=== PATIENT | male | born 1950 | race Caucasian/White ===

== ENCOUNTER 2020-06-17 16:29 | Inpatient (IN) | payer OTHER, BC ==
[2020-06-17 17:48] LABS: BASO % 0.5 % (0-2.0); EOS % 3.6 % (0-4.5); HEMOGLOBIN 14.3 GM/dl (11.7-16.9); LYMPH % 18.3 % (8-40); MCHC 34.1 g/dl (32.0-35.9); MEAN CELL VOLUME 87.8 fl (80-96); MEAN PLT VOLUME 8.4 fl (7.5-11.1); MONO % 6.9 % (3.8-10.2); NEUT % 70.7 % (42.8-82.8); PLATELET COUNT 113 K/MM3 (134-434); RBC 4.78 M/mm3 (4.00-5.60); RDW 13.6 % (11.9-15.9); WHITE BLOOD COUNT 8.9 K/mm3 (4.0-10.8)
[2020-06-17 17:59] LABS: ALK PHOS 68 U/L (45-117); ANION GAP 11 MMOL/L (8-16); BILIRUBIN,TOTAL 1.4 mg/dl (0.2-1); CALCIUM 8.9 mg/dl (8.5-10); CHLORIDE 98 mmol/L (98-107); CO2 25 mmol/L (21-32); CREATININE 1.2 mg/dl (0.55-1.3); GLUCOSE,RANDOM 181 mg/dl (74-106); MAGNESIUM 1.8 mg/dL (1.8-2.4); SGOT/AST 28 U/L (15-37); SGPT/ALT 30 U/L (13-61); SODIUM 134 mmol/L (136-145); TOT PROT 7.6 g/dl (6.4-8.2)
[2020-06-17] MEDS ORDERED: POTASSIUM CHLORIDE TABS 20 MEQ TABLET.ER (FP) PO ONE ×2 (18:06→18:43)
[2020-06-17 21:08] VITALS: BMI 36.8
[2020-06-17] MEDS: EZETIMIBE 10 MG TABLET (FP) PO SCH (21:49)
[2020-06-17] MEDS: APIXABAN 5 MG TABLET PO SCH (21:49)
[2020-06-17] MEDS ORDERED: ACETAMINOPHEN 325 MG TABLET (FP) PO PRN (21:55)
[2020-06-17] MEDS: INSULIN SLIDING SCALE (NOVOLOG) 1 VIAL SQ SCH (22:21)
[2020-06-18] MEDS: metFORMIN HCL 500 MG TABLET (FP) PO SCH ×2 (06:20→17:14)
[2020-06-18] MEDS: LEVOTHYROXINE NA 25 MCG TABLET (FP) PO SCH (06:20)
[2020-06-18] MEDS: INSULIN SLIDING SCALE (NOVOLOG) 1 VIAL SQ SCH ×4 (06:21→21:22)
[2020-06-18 08:21] LABS: EOS % 3.3 % (0-4.5); HEMATOCRIT 39.4 % (35.4-49); HEMOGLOBIN 13.1 GM/dl (11.7-16.9); LYMPH % 21.8 % (8-40); MCH 29.1 pg (25.7-33.7); MCHC 33.2 g/dl (32.0-35.9); MEAN CELL VOLUME 87.7 fl (80-96); MEAN PLT VOLUME 8.2 fl (7.5-11.1); MONO % 8.3 % (3.8-10.2); NEUT % 65.6 % (42.8-82.8); PLATELET COUNT 90 K/MM3 (134-434); RBC 4.49 M/mm3 (4.00-5.60); WHITE BLOOD COUNT 7.1 K/mm3 (4.0-10.8)
[2020-06-18 08:36] LABS: ALBUMIN 3.6 g/dl (3.4-5.0); ALK PHOS 57 U/L (45-117); ANION GAP 10 MMOL/L (8-16); BILIRUBIN,TOTAL 1.3 mg/dl (0.2-1); CALCIUM 8.8 mg/dl (8.5-10); CHLORIDE 98 mmol/L (98-107); CHOLESTEROL 139 mg/dl (50-200); CO2 26 mmol/L (21-32); GLUCOSE,RANDOM 154 mg/dl (74-106); HDL CHOLESTEROL 29 mg/dl (40-60); LDL CHOLESTEROL (ONLY DFH) 61 mg/dl (5-100); MAGNESIUM 1.8 mg/dL (1.8-2.4); SGOT/AST 25 U/L (15-37); SGPT/ALT 25 U/L (13-61); SODIUM 134 mmol/L (136-145); TOT PROT 6.7 g/dl (6.4-8.2); TRIGLYCERIDES 246 mg/dl (0-150)
[2020-06-18 08:47] LABS: POTASSIUM 2.7 mmol/L (3.5-5.1)
[2020-06-18] MEDS: KCL 10 MEQ IVPB 10 MEQ/100 ML INFUS.BAG IVPB SCH ×3 (09:58→12:41)
[2020-06-18] MEDS: SOTALOL HCL 80 MG TABLET (FP) PO SCH ×2 (10:00→21:22)
[2020-06-18] MEDS: APIXABAN 5 MG TABLET PO SCH ×2 (10:00→21:22)
[2020-06-18] MEDS ORDERED: DILTIAZEM HCL 360 MG PO SCH ×2 (10:00→12:04)
[2020-06-18] MEDS ORDERED: ASPIRIN COATED 81 MG TABLET.EC PO SCH (10:00)
[2020-06-18] MEDS ORDERED: SOTALOL HCL 120 MG PO SCH (10:00)
[2020-06-18] MEDS: TAMSULOSIN HCL 0.4 MG CAP PO SCH (10:00)
[2020-06-18] MEDS: POTASSIUM CHLORIDE TABS 20 MEQ TABLET.ER (FP) PO ONE (10:00)
[2020-06-18] MEDS: DULoxetine HCL 20 MG CAPSULE.DR PO SCH (10:02)
[2020-06-18] MEDS ORDERED: CHLORTHALIDONE 50 MG TABLET PO SCH (12:15)
[2020-06-18] MEDS ORDERED: CHLORTHALIDONE 25 MG TABLET PO SCH (12:15)
[2020-06-18] MEDS ORDERED: MAGNESIUM SULF 50% (8.12 MEQ/2 ML-1 GM VIAL) IVPB ONE (12:17)
[2020-06-18] MEDS ORDERED: ALBUTEROL SO4 HFA INHALER IH PRN (12:18)
[2020-06-18] MEDS ORDERED: PATIENT'S OWN MEDICATION (NON-FORMULARY) (Fluticasone Propionate [Flovent Diskus] 50 MCG B IH SCH (12:30)
[2020-06-18] MEDS ORDERED: MAGNESIUM 1GM/D5W - 1 GM/100 ML IVPB IVPB ONE (12:30)
[2020-06-18] MEDS: CEPHALEXIN MONOHYDRATE 500 MG CAPSULE (UD) PO SCH ×2 (12:41→21:22)
[2020-06-18] MEDS: COLLAGENASE CLOSTRIDIUM HIST. 30 GRAMS TUBE TP SCH (12:45)
[2020-06-18] MEDS ORDERED: POTASSIUM CHLORIDE TABS 20 MEQ TABLET.ER (FP) PO ONE (17:00)
[2020-06-18] MEDS: EZETIMIBE 10 MG TABLET (FP) PO SCH (21:22)
[2020-06-18] MEDS ORDERED: COLESEVELAM HCL 625 MG PO SCH (22:00)
[2020-06-19] MEDS: metFORMIN HCL 500 MG TABLET (FP) PO SCH ×2 (06:36→16:01)
[2020-06-19] MEDS: INSULIN SLIDING SCALE (NOVOLOG) 1 VIAL SQ SCH ×3 (06:36→16:03)
[2020-06-19] MEDS: LEVOTHYROXINE NA 25 MCG TABLET (FP) PO SCH (06:52)
[2020-06-19 07:50] LABS: EOS % 3.4 % (0-4.5); HEMATOCRIT 39.1 % (35.4-49); HEMOGLOBIN 13.3 GM/dl (11.7-16.9); MCH 29.7 pg (25.7-33.7); MCHC 33.9 g/dl (32.0-35.9); MEAN CELL VOLUME 87.4 fl (80-96); MEAN PLT VOLUME 8.3 fl (7.5-11.1); MONO % 8.1 % (3.8-10.2); NEUT % 66.5 % (42.8-82.8); PLATELET COUNT 96 K/MM3 (134-434); RBC 4.48 M/mm3 (4.00-5.60); RDW 13.7 % (11.9-15.9); WHITE BLOOD COUNT 7.5 K/mm3 (4.0-10.8)
[2020-06-19 07:59] LABS: ALBUMIN 3.6 g/dl (3.4-5.0); BILIRUBIN,TOTAL 1.3 mg/dl (0.2-1); CALCIUM 8.7 mg/dl (8.5-10); CREATININE 1.1 mg/dl (0.55-1.3); POTASSIUM 3.3 mmol/L (3.5-5.1); TOT PROT 7.1 g/dl (6.4-8.2)
[2020-06-19] MEDS ORDERED: POTASSIUM CHLORIDE TABS 20 MEQ TABLET.ER (FP) PO ONE (08:30)
[2020-06-19] MEDS: TAMSULOSIN HCL 0.4 MG CAP PO SCH (08:31)
[2020-06-19] MEDS: COLLAGENASE CLOSTRIDIUM HIST. 30 GRAMS TUBE TP SCH (09:00)
[2020-06-19 09:47] VITALS: BP 109/61; PULSE 58; TEMP 98.1
[2020-06-19] MEDS ORDERED: REGADENOSON 0.4 MG/5 ML PRE-FILLED SYRINGE IVPUSH ONE ×2 (09:56→10:30)
[2020-06-19] MEDS ORDERED: PATIENT'S OWN MEDICATION (NON-FORMULARY) (Trospium Chloride 20 MG) PO SCH (10:00)
[2020-06-19] MEDS ORDERED: CHLORTHALIDONE 25 MG TABLET PO SCH (15:20)
[2020-06-19] MEDS: SOTALOL HCL 80 MG TABLET (FP) PO SCH (16:00)
[2020-06-19] MEDS: DULoxetine HCL 20 MG CAPSULE.DR PO SCH (16:01)
[2020-06-19] MEDS: CEPHALEXIN MONOHYDRATE 500 MG CAPSULE (UD) PO SCH (16:02)
[2020-06-19] MEDS: APIXABAN 5 MG TABLET PO SCH (16:04)
[2020-06-19] MEDS ORDERED: MOMETASONE FUROATE 110 MCG/IH INHALER IH SCH (22:00)
[2020-06-20] MEDS ORDERED: LISINOPRIL 5 MG TABLET PO SCH (10:00)
== END 2020-06-19 19:41 | disposition home or self-care (01) | DRG 312 ==
LOC: FER 16:29 → FM/S 18:41
PROVIDERS: ADMIT Internal Medicine; ATTEND Nurse Practitioner Acute Care
DX: R55 Syncope and collapse (principal); E87.1 Hypo-osmolality and hyponatremia; L03.116 Cellulitis of left lower limb; J44.9 Chronic obstructive pulmonary disease, unspecified; I48.91 Unspecified atrial fibrillation; E03.9 Hypothyroidism, unspecified; N40.0 Benign prostatic hyperplasia without lower urinary tract symptoms; Z79.84 Long term (current) use of oral hypoglycemic drugs; E87.6 Hypokalemia; Z79.01 Long term (current) use of anticoagulants; E11.9 Type 2 diabetes mellitus without complications; I25.10 Atherosclerotic heart disease of native coronary artery without angina pectoris; E66.01 Morbid (severe) obesity due to excess calories; K76.0 Fatty (change of) liver, not elsewhere classified; Z68.36 Body mass index [BMI] 36.0-36.9, adult; E83.42 Hypomagnesemia; I44.0 Atrioventricular block, first degree; D69.6 Thrombocytopenia, unspecified; E11.51 Type 2 diabetes mellitus with diabetic peripheral angiopathy without gangrene
CPT/HCPCS: 36415; 71046-TC-FY; 78452-TC; 80053; 80061; 82550; 82962; 83036; 83735; 83880; 84443; 84484; 85025; 93005; 93017; 93306-TC; 93880-TC; 93970-TC; 99285-25; A9502; C9803; J2785; U0003; U0005

== ENCOUNTER 2023-12-22 04:17 | Day surgery (SDC) | payer OTHER, BC ==
[2023-12-21 10:01] VITALS: BMI 37.2
[~2023-12-22 04:17] MED LIST: LACTATED RINGERS SOLUTION 1,000 ML IV SCH; ONDANSETRON 4 MG/2 ML VIAL IVPUSH PRN; PROMETHAZINE HCL 25 MG/1 ML VIAL IVPB PRN; oxyCODONE HCL 5 MG TABLET PO PRN
[2023-12-22] MEDS ORDERED: ACETAMINOPHEN INJECTION 100 ML ONE (07:03)
[2023-12-22] MEDS ORDERED: LIDOCAINE HCL/PF 2% SDV 5ML VIAL ONE (07:05)
[2023-12-22] MEDS ORDERED: PROPOFOL 40 ML ONE (07:06)
[2023-12-22] MEDS ORDERED: ONDANSETRON 4 MG/2 ML VIAL ONE (07:08)
[2023-12-22] MEDS ORDERED: DEXAMETHASONE SOD PHOSPHATE 4 MG/1 ML VIAL ONE (07:09)
[2023-12-22] MEDS ORDERED: KETOROLAC TROMETHAMINE 30 MG/1 ML VIAL ONE (07:09)
[2023-12-22] MEDS ORDERED: MIDAZOLAM HCL 2 MG/2 ML SINGLE DOSE VIAL ONE (07:11)
[2023-12-22] MEDS: IOHEXOL 300 MG/ML INFUS..BTL IV ONE (08:00)
[2023-12-22] MEDS ORDERED: oxyCODONE HCL 5 MG TABLET PO PRN (08:17)
[2023-12-22] MEDS ORDERED: DEXTROSE 5%-0.45% SALINE 1,000 ML IV SCH (08:30)
[2023-12-22 10:49] VITALS: RESP 20; TEMP 97.2
[2023-12-22 11:14] VITALS: BP 130/75; PULSE 85
== END 2023-12-22 11:10 | disposition home or self-care (01) ==
LOC: JASU-SURG 04:17
PROVIDERS: ATTEND Urology
PROC: BT1FZZZ Fluoroscopy of Left Kidney, Ureter and Bladder (ICD-10-PCS; principal; 2023-12-22 07:30)
PROC: 0T7D8ZZ Dilation of Urethra, Via Natural or Artificial Opening Endoscopic (ICD-10-PCS; 2023-12-22 07:30)
PROC: 0T778DZ Dilation of Left Ureter with Intraluminal Device, Via Natural or Artificial Opening Endoscopic (ICD-10-PCS; 2023-12-22 07:30)
DX: N35.819 Other urethral stricture, male, unspecified site (principal); N13.6 Pyonephrosis; N20.1 Calculus of ureter
CPT/HCPCS: 76000-TC-FY; 82962; 87086; 87186; 94760; C1758; C2617; J0131

== ENCOUNTER 2023-12-29 04:18 | Day surgery (SDC) | payer OTHER, BC ==
[2023-12-25 16:24] VITALS: BMI 37.2
[2023-12-29] MEDS ORDERED: PROPOFOL 20 ML ONE (07:20)
[2023-12-29] MEDS ORDERED: MIDAZOLAM HCL 2 MG/2 ML SINGLE DOSE VIAL ONE (07:21)
[2023-12-29] MEDS ORDERED: DEXAMETHASONE SOD PHOSPHATE 4 MG/1 ML VIAL ONE (08:05)
[2023-12-29] MEDS ORDERED: ONDANSETRON 4 MG/2 ML VIAL ONE (08:05)
[2023-12-29] MEDS ORDERED: PHENYLEPHRINE HCL 10 MG/1 ML SINGLE DOSE VIAL ONE (08:17)
[2023-12-29] MEDS ORDERED: oxyCODONE HCL 5 MG TABLET PO PRN (08:30)
[2023-12-29] MEDS ORDERED: DEXTROSE 5%-0.45% SALINE 1,000 ML IV SCH (08:30)
[2023-12-29] MEDS ORDERED: ONDANSETRON 4 MG/2 ML VIAL IVPUSH PRN (08:42)
[2023-12-29] MEDS: LACTATED RINGERS SOLUTION 1,000 ML IV SCH (09:40)
[2023-12-29 12:00] VITALS: BP 121/64; PULSE 80; RESP 18; TEMP 98.4
[2024-01-05 20:10] LABS: CA OXALATE MONOHYDR. 60 % (.); SIZE 3x3 mm (.); WEIGHT 14 mg (.)
== END 2023-12-29 12:00 | disposition home or self-care (01) ==
LOC: JASU-SURG 04:18
PROVIDERS: ATTEND Urology
PROC: 0T778DZ Dilation of Left Ureter with Intraluminal Device, Via Natural or Artificial Opening Endoscopic (ICD-10-PCS; 2023-12-29)
PROC: 0TC18ZZ Extirpation of Matter from Left Kidney, Via Natural or Artificial Opening Endoscopic (ICD-10-PCS; principal; 2023-12-29 07:30)
DX: N20.0 Calculus of kidney (principal); I10 Essential (primary) hypertension; E11.9 Type 2 diabetes mellitus without complications; I25.10 Atherosclerotic heart disease of native coronary artery without angina pectoris; E66.9 Obesity, unspecified; Z68.37 Body mass index [BMI] 37.0-37.9, adult
CPT/HCPCS: 36415; 76000-TC-FY; 82360; 82962; 88300-TC; 94760; C1758